=== PATIENT | female | born 1970 | race Caucasian/White ===

== ENCOUNTER 2022-09-07 09:58 | Emergency (ER) | payer MEDICAID ==
[~2022-09-07] VITALS: Ht 162.6 cm; Wt 72.0 kg
[2022-09-07] MEDS ORDERED: MECL-111 PO (12:38)
[2022-09-07] MEDS ORDERED: ONDA-144 PO (12:38)
[2022-09-07 12:39] VITALS: BP 115/61
== END 2022-09-07 13:06 | disposition home or self-care (01) ==
LOC: ER 09:58
DX: S06.0X0A Concussion without loss of consciousness, initial encounter (principal); S00.432A Contusion of left ear, initial encounter; J45.909 Unspecified asthma, uncomplicated; Z90.710 Acquired absence of both cervix and uterus; X58.XXXA Exposure to other specified factors, initial encounter; Y93.89 Activity, other specified; Y92.89 Other specified places as the place of occurrence of the external cause; Y99.8 Other external cause status
CPT/HCPCS: 70450

== ENCOUNTER 2023-01-03 04:51 | Emergency (ER) | payer MEDICAID ==
[~2023-01-03] VITALS: Ht 162.6 cm; Wt 74.8 kg
[~2023-01-03 04:51] MED LIST: MECL-111 PO; ONDA-144 PO
[2023-01-03 05:25] VITALS: BP 109/68
[2023-01-03] MEDS ORDERED: ACETAMINOPHEN 325 MG TAB PO ONE (05:45)
[2023-01-03] MEDS ORDERED: ONDANSETRON ODT 4 MG TAB PO ONE (05:45)
[2023-01-03 06:45] LABS: Albumin 3.4 g/dL (3.4-5.0); Calcium 8.8 mg/dL (8.5-10.1); Potassium 4.3 mmol/L (3.5-5.1)
[2023-01-03 06:48] LABS: BUN/Creatinine Ratio 22.2 (10.0-20.0); Bilirubin, Total 0.4 mg/dL (0.2-1.0); Total Protein 7.8 g/dL (6.4-8.2)
[2023-01-03 07:05] LABS: Basophils # (auto) 0 10 ^3/uL (0-0.2); Basophils % (auto) 0.5 % (0.0-2.0); Eosinophils # (auto) 0 10 ^3/uL (0-0.8); Eosinophils % (auto) 0.5 % (0.0-7.0); Hematocrit 38.5 % (36.0-46.0); Lymphocytes # (auto) 0.3 10 ^3/uL (0.4-5.4); Lymphocytes % (auto) 5.2 % (10.0-50.0); Mean Corpuscular Hemoglobin 32.5 pg (28.0-32.0); Mean Corpuscular Hgb Conc. 36.3 g/dL (32.0-36.0); Mean Corpuscular Volume 89.4 fL (80.0-100.0); Monocytes # (auto) 0.2 10 ^3/uL (0-1.3); Monocytes % (auto) 3.3 % (0.0-12.0); Neutrophils # (auto) 4.5 10 ^3/uL (1.6-8.6); Neutrophils % (auto) 90.5 % (37.0-80.0); Nucleated Red Blood Cells % 0.1 %; Red Cell Distribution Width 13.4 % (11.8-14.3)
[2023-01-03] MEDS ORDERED: SODIUM CHLORIDE 0.9% 1,000 ML IV ONE ×2 (08:00)
[2023-01-03 08:17] LABS: Urine Bacteria NONE SEEN /hpf (None Seen); Urine Blood Negative /uL (Negative); Urine Specific Gravity 1.029 (1.001-1.035); Urine WBC <1 /hpf (0 - 5)
[2023-01-03] MEDS ORDERED: InsuLIN REG 1unit/0.01ml Soln (100units/ml) IV ONE (08:30)
== END 2023-01-03 10:10 | disposition left against medical advice (07) ==
LOC: ER 04:51
DX: K52.9 Noninfective gastroenteritis and colitis, unspecified (principal); R73.9 Hyperglycemia, unspecified; J45.909 Unspecified asthma, uncomplicated; Z90.710 Acquired absence of both cervix and uterus; Z88.5 Allergy status to narcotic agent
CPT/HCPCS: 36415; 71045; 74176; 80053; 81001; 82962; 85025; 93005; 99285; Q0162

== ENCOUNTER 2023-06-17 15:46 | Emergency (ER) | payer MEDICAID ==
[~2023-06-17 15:46] MED LIST changes: -MECL-111 PO; +MECL-126 PO
== END 2023-06-17 17:21 | disposition left against medical advice (07) ==
LOC: ER 15:46
DX: R73.9 Hyperglycemia, unspecified (principal); Z53.21 Procedure and treatment not carried out due to patient leaving prior to being seen by health care provider